=== PATIENT | female | born 2000 | race Caucasian/White ===

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

== ENCOUNTER 2022-11-24 22:47 | Emergency (ER) | payer OTHER, BC ==
[~2022-11-24] VITALS: Ht 160 cm; Wt 52.2 kg
[2022-11-24 23:00] VITALS: BP_SYST 124
[2022-11-25] MEDS ORDERED: ONDA-8 TL (00:10)
[2022-11-25] MEDS ORDERED: NAPR-1172 PO (00:10)
[2022-11-25] MEDS ORDERED: IBUPROFEN 600 MG TABLET PO ONE (00:15)
[2022-11-25 00:18] VITALS: BP_SYST 124
== END 2022-11-25 00:18 | disposition home or self-care (01) ==
LOC: SED 22:47
DX: S06.0X0A Concussion without loss of consciousness, initial encounter (principal); Z79.899 Other long term (current) drug therapy; V89.2XXA Person injured in unspecified motor-vehicle accident, traffic, initial encounter; Y93.89 Activity, other specified; Y92.89 Other specified places as the place of occurrence of the external cause; Y99.8 Other external cause status
CPT/HCPCS: 70450-TC; 76376; 81025; 99284